=== PATIENT | male | born 1960 ===

== ENCOUNTER 2016-10-23 18:06 | Emergency (ER) | payer OTHER ==
[2016-10-23 18:22] VITALS: BP 156/81; PULSE 112; RESP 18; TEMP 98.2; O2SAT 96
--- NOTE | 2016-10-23 18:28 | UCPHY ---
H & P Patient Type: New Chief Complaint Nursing Narrative: playing tennis today, possibly jumped and then developed right calf pain, can bear weight but with significant pain HPI/ROS: HPI CHIEF COMPLAINT: Right calf pain HISTORY OF PRESENT ILLNESS: this patient is 56-year-old male, presents to the urgent care with right calf pain. Patient tells me that was playing tennis he possibly jumped up and down landing wrong on his right leg. The nails tenderness to palpation and calf swelling over his posterior right calf. His Achilles still intact. He has a negative Samira sign. He does have swelling to his calf and tenderness. There is no significant ecchymosis his compartments are soft. No other injuries. patient is not on any blood thinners except baby aspirin. Past Medical History: Coronary artery disease with stents Past Surgical History: cardiac stent Social History: denies use of drugs alcohol tobacco products Family History: noncontributory ROS REVIEW OF SYSTEMS: A comprehensive 10 point review of systems is otherwise negative aside from elements mentioned in the history of present illness. Exam Constitutional triage nursing summary reviewed, vital signs reviewed, awake/ alert. Eyes normal conjunctivae and sclera, EOMI, PERRLA. HENT normal inspection, atraumatic, moist mucus membranes, no epistaxis, neck supple/ no meningismus, no raccoon eyes. Respiratory clear to auscultation bilaterally, normal breath sounds, no respiratory distress, no wheezing. Cardiovascular rate normal, regular rhythm, no murmur, no edema, distal pulses normal. Gastrointestinal soft, non-tender, no rebound, no guarding, normal bowel sounds, no distension, no pulsatile mass. Genitourinary no CVA tenderness. Musculoskeletal right lower extremity: this patient has good cap refill, good pulse, sensation intact, compartment is soft of his right lower extremity specifically around his calf. Does have calf fullness and tenderness consistent with most likely a muscle tear no midline vertebral tenderness, full range of motion, no calf swelling, no tenderness of extremities, no meningismus , good pulses, neurovascularly intact. Skin pink, warm, & dry, no rash, skin atraumatic. Neurologic awake, alert and oriented x 3, AAOx3, moves all 4 extremities equally, motor intact, sensory intact, CN II-XII intact, normal cerebellar, normal vision, normal speech. Psychiatric normal mood/affect. Heme/Lymph/Immune no lymphadenopathy. Differential Diagnosis: includes but is not limited to in a particular order, musculoskeletal injury which includes a muscle pull, gastric knee is tear, calf tear, bony abnormality, compartment syndrome Medical Decision Making: Plan for this patient be given ibuprofen 800 mg for pain control as well as [place]. He We will ice his calf. He will need crutches. Will perform a x-ray of his right tib-fib. Re-evaluation: 1858: Spoke with Dr. Aguilar will see and evaluate this patient tomorrow. Recommends and having a follow-up appointment: The morning for time. Patient has been updated understands this. Patient also understands return to the urgent care or emergency room if develops worsening pain this evening, swelling , numbness or tingling or signs of compartment syndrome I given him strict precautions this. I do recommend he non weightbear use crutches, ice his legs, keep it elevated takes pain medicine as needed. At time of discharge patient's compartments are soft. ED x-ray right leg: negative for acute fracture. Source: Patient - Medical/Surgical History Hx Asthma: No Hx Diabetes: No Hx Cardiac Disease: Yes Hx Renal Disease: No Hx Cirrhosis: No Hx Alcoholism: No Hx HIV/AIDS: No Hx Splenectomy or Spleen Trauma: No Other PMH: cardiac stents x 2 - Family History Significant Family History: No pertinent family hx - Social History Smoking Status: Never smoked Constitutional: Initial Vital Signs Temperature (C) 36.8 C 10/23/16 18:18 Heart Rate 112 H 10/23/16 18:18 Respiratory Rate 18 10/23/16 18:18 Blood Pressure 156/81 H 10/23/16 18:18 O2 Sat (%) 96 10/23/16 18:18 Allergies/Adverse Reactions: No Known Allergies Allergy (Verified 10/23/16 18:11) Home Medications: Medication Instructions Recorded Aspirin [Aspirin 81mg (*)] 10/23/16 Atorvastatin Calcium [Lipitor 80 10/23/16 mg] Niacin ER [Niaspan 1000 mg (*)] 10/23/16 Omeprazole [Prilosec 20 mg] 10/23/16 Ramipril [Altace] 10/23/16 Departure - Departure Disposition: Home, Routine, Self-Care Clinical Impression: Right calf pain, Calf swelling Condition: Good Instructions: Musculoskeletal Pain (ED) Additional Instructions: 1. please ice your leg. 2. Please use crutches to help ambulate. 3. take pain medicine as needed for pain control. 4. Follow up with Orthopedics. 5. Please watch for compartment syndrome this includes severe pain in the right lower extremity, severe swelling with a very tense calf, numbness or tingling of her toes, discoloration of the leg. If you see this go immediately to the emergency room. Keep the leg elevated. Referrals: Roe Aguilar MD [Medical Doctor] - As per Instructions - PQRS PQRS Measurement: n/a
[2016-10-23] MEDS ORDERED: HYDROCODONE/APAP 5/325 TAB PO ONE (18:42)
[2016-10-23] MEDS ORDERED: IBUPROFEN 800 MG TAB PO ONE (18:42)
[2016-10-23] MEDS ORDERED: IBUPROFEN 200 MG TAB PO ONE (19:14)
== END 2016-10-23 19:35 | disposition home or self-care (01) ==
LOC: CED 18:06
DX: M79.661 Pain in right lower leg (principal); R22.41 Localized swelling, mass and lump, right lower limb; Y93.73 Activity, racquet and hand sports; Y92.312 Tennis court as the place of occurrence of the external cause; X50.0XXA Overexertion from strenuous movement or load, initial encounter; Y99.8 Other external cause status; I25.10 Atherosclerotic heart disease of native coronary artery without angina pectoris; Z95.5 Presence of coronary angioplasty implant and graft
CPT/HCPCS: 73590-PO; 99204-PO; G0463-PO

== ENCOUNTER → 2016-12-21 | Outpatient (CLI) | payer OTHER | LOC: FIMAGING 08:02 | PROVIDERS: ATTEND Orthopaedic Surgery | DX: S83.241A Other tear of medial meniscus, current injury, right knee, initial encounter (principal); M22.41 Chondromalacia patellae, right knee ==